=== PATIENT | male | born 1955 | race African-American/Black ===

== ENCOUNTER 2020-02-03 05:43 | Emergency (ER) | payer MEDICAID ==
[~2020-02-03] VITALS: Ht 170.2 cm; Wt 81.0 kg
[2020-02-03] MEDS ORDERED: ACETAMINOPHEN 325MG TABLET PO ONE (07:00)
[2020-02-03 07:49] LABS: EOSINOPHILS % 2.3 % (0.0-5.0); HEMATOCRIT. 41.1 % (42.0-52.0); HEMOGLOBIN. 13.9 g/dL (14.0-18.0); LYMPHOCYTES % 39.8 % (20.0-50.0); MEAN CORPUSCULAR HEMOGLOBIN 29.9 pg (28.0-32.0); MEAN PLATELET VOLUME 7.4 fl (7.4-10.4); MONOCYTES % 9.7 % (2.0-8.0); NEUTROPHILS % 47.2 % (40.0-76.0); PLATELET 230 x1000/uL (130-400); RED BLOOD CELL COUNT 4.66 mill/uL (4.7-6.1); RED CELL DISTRIBUTION WIDTH 14.2 % (11.6-14.6)
[2020-02-03 07:51] LABS: CHLORIDE 106 mEq/L (98-107)
[2020-02-03 09:09] VITALS: BP 135/83
== END 2020-02-03 09:22 | disposition home or self-care (01) ==
LOC: ER 05:51
DX: R05 Cough (principal); E78.00 Pure hypercholesterolemia, unspecified
CPT/HCPCS: 36415; 71045; 80053; 85025; 93005; 99285

== ENCOUNTER 2021-08-28 04:24 | Emergency (ER) | payer MEDICAID ==
[~2021-08-28] VITALS: Ht 170.2 cm; Wt 75.0 kg
[2021-08-28 05:09] VITALS: BP 153/93
[2021-08-28 06:05] LABS: EOSINOPHILS % 1.4 % (0.0-5.0); HEMATOCRIT. 42.7 % (42.0-52.0); HEMOGLOBIN. 14.4 g/dL (14.0-18.0); MEAN CORPUSCULAR HEMOGLOBIN 29.4 pg (28.0-32.0); MEAN CORPUSCULAR VOLUME 87.1 fL (80.0-94.0); MEAN PLATELET VOLUME 7.7 fl (7.4-10.4); MONOCYTES % 11.7 % (2.0-8.0); NEUTROPHILS % 46.9 % (40.0-76.0); PLATELET 220 x1000/uL (130-400); RED CELL DISTRIBUTION WIDTH 13.2 % (11.6-14.6)
[2021-08-28 06:11] LABS: CHLORIDE 107 mEq/L (98-107)
[2021-08-28 06:13] LABS: CLARITY URINE CLEAR (CLEAR); COLOR URINE YELLOW (YELLOW); KETONES URINE NEGATIVE (NEGATIVE); LEUKOCYTE ESTERASE URINE NEGATIVE (NEGATIVE); NITRITE URINE NEGATIVE (NEGATIVE); OCCULT BLOOD URINE 2+ (NEGATIVE); PH URINE 5.5 (4.5-8.0); PROTEIN URINE NEGATIVE (NEGATIVE); SPECIFIC GRAVITY URINE 1.016 (1.005-1.030); UROBILINOGEN URINE 0.2 E.U./dL (0.2-1.0)
[2021-08-28 06:31] LABS: PROTHROMBIN TIME 10.6 sec (9.6-11.0)
[2021-08-28] MEDS ORDERED: T3 PO (06:42)
== END 2021-08-28 06:49 | disposition home or self-care (01) ==
LOC: ER 04:24
DX: N13.2 Hydronephrosis with renal and ureteral calculous obstruction (principal); E78.00 Pure hypercholesterolemia, unspecified
CPT/HCPCS: 36415; 70360; 74176; 80053; 81003; 85025; 93005; 99285

== ENCOUNTER 2021-10-25 23:30 | Emergency (ER) | payer MEDICAID, OTHER ==
[~2021-10-25] VITALS: Ht 167.6 cm; Wt 81.0 kg
[~2021-10-25 23:30] MED LIST: T3 PO
[2021-10-26] MEDS ORDERED: METHOCARBAMOL 750MG TABLET PO SCH (01:30)
[2021-10-26] MEDS ORDERED: ACETAMINOPHEN 325MG TABLET PO ONE (01:30)
[2021-10-26] MEDS ORDERED: LIDOCAINE 5% PATCH TOP SCH (01:30)
[2021-10-26] MEDS ORDERED: IBUPROFEN 400MG TABLET PO ONE (01:30)
[2021-10-26] MEDS ORDERED: LIDO1ADH23 TP (02:58)
[2021-10-26] MEDS ORDERED: TOPUD PO (02:58)
[2021-10-26] MEDS ORDERED: IBUP-2028 MT (02:58)
[2021-10-26] MEDS ORDERED: METH-653 MT (02:58)
[2021-10-26 03:10] VITALS: BP 110/60
== END 2021-10-26 03:10 | disposition home or self-care (01) ==
LOC: ER 23:30
DX: S13.4XXA Sprain of ligaments of cervical spine, initial encounter (principal); M54.59 Other low back pain; M54.6 Pain in thoracic spine; R03.0 Elevated blood-pressure reading, without diagnosis of hypertension; V73.6XXA Passenger on bus injured in collision with car, pick-up truck or van in traffic accident, initial encounter; Y93.89 Activity, other specified; Y92.488 Other paved roadways as the place of occurrence of the external cause
CPT/HCPCS: 99284